=== PATIENT | male | born 2000 | race Caucasian/White ===

== ENCOUNTER 2023-07-20 19:50 | Emergency (ER) | payer OTHER, SELFPAY ==
[2023-07-20 19:52] VITALS: BP 111/81
[2023-07-20 20:22] LABS: % Basophils 0.7 % (0-2); % Immature Granulocytes 0.3 % (0-0.5); % Lymphocytes 46.9 % (20.5-51.1); % Monocytes 5.9 % (1.7-9.3); % Neutrophils 46.2 % (42.2-75.2); Absolute Lymphocytes 2.7 10^3/uL (1.2-3.4); Absolute Monocytes 0.3 10^3/uL (0.1-0.6); Absolute Neutrophils 2.7 10^3/uL (1.4-6.5); Hematocrit 40.6 % (39.0-52.0); Hemoglobin 14.4 g/dL (13.0-18.0); Mean Corp Hgb Conc. 35.5 g/dL (33.0-37.0); Mean Corpuscular Hgb 30.5 pg (27.0-31.0); Mean Platelet Volume 11.2 fL (7.4-10.4); Nucleated Red Blood Cells % 0 % (-); Platelet Count 162 10^3/uL (130-400); Red Blood Cell Count 4.72 10^6/uL (4.70-6.10); Red Cell Dist. Width 12.5 % (11.5-14.5); White Blood Cell Count 5.8 10^3/uL (4.8-10.8)
[2023-07-20 20:38] LABS: COVID-19 Antigen Negative (Negative)
[2023-07-20 20:40] LABS: ALT (SGPT) 79 U/L (0-50); AST (SGOT) 113 U/L (17-59); Albumin 4.2 g/dl (3.5-5.0); Alkaline Phosphatase 95 U/L (38-126); Blood Urea Nitrogen 16 mg/dl (9-20); Calcium 9.5 mg/dl (8.4-10.2); Carbon Dioxide 29 mmol/L (22-30); Chloride 95 mmol/L (98-107); Glucose 138 mg/dl (70-99); Potassium 3.6 mmol/L (3.5-5.1); Sodium 134 mmol/L (135-145); Total Bilirubin 1.4 mg/dl (0.2-1.3); eGFR > 60.00
--- NOTE | 2023-07-20 22:02 | ED.GENMED ---
History of Present Illness
General
Chief Complaint: Fever
Source: patient
Exam Limitations: none
Time Seen by Provider: 07/20/23 21:29
Travel History
Have you had any contact with someone who has COVID-19?: No
Do you have any symptoms of coronavirus? Fever > 100 degrees, chills, cough, shortness of breath, sore throat, loss of taste or smell, muscle aches, or headache?: Yes
Symptoms:: fever
History of Present Illness
History of Present Illness:
This is a 22 year old male that comes in with c/o fever. State that today he had a fever of 103.8. States that he has been coughing and his chest hurts. States that when he was walking around he felt dizzy. States that he has been to the PCP twice
with the last time on Monday. States that he was given Amoxicillin BID for a sinus infection. States that he has continued with fever, chills, cough, Nausea, headache and dizziness like the room is spinning. Denies any SOB, abd pain, vomiting,
diarrhea, urinary burning.
Past History
Past History
ED Past Medical History: Other (Sinus infections)
ED Past Surgical History: Other (Left eye surgery)
Social History
Tobacco: Non-smoker
Alcohol: Occasional
Personal: Single
Living: with family
Review of Systems
Review of Systems
All Other Systems: ROS reviewed and negative except as documented in HPI and ROS
Constitutional: Reports fever and chills
EENT: Reports no symptoms
Respiratory: Reports cough
Cardiac: Reports chest pain
ABD/GI: Reports nausea; Denies abdominal pain, vomiting or diarrhea
: Reports no symptoms; Denies dysuria, frequency or urgency
Musculoskeletal: Reports no symptoms
Skin: Reports no symptoms
Neurological: Reports dizzy and headache
Psychiatric: Reports no symptoms
Phy Exam
General Physical Exam
General Presentation: no apparent distress
General age: appears stated age
General Skin: warm and dry
General Habitus: normal
General Mental: alert
General Hydration: appears well hydrated
ENT Exam
ENT Exam: TM's normal, pharynx normal and neck supple
Cardiovascular Exam
Cardiovascular Exam: regular rate/rhythm, no edema, no murmur and normal peripheral pulses
Pulmonary Exam
Pulmonary Exam: lungs clear, no respiratory distress, no rales, chest non tender, no crackles, no wheezing and other (Dry cough noted)
Gastrointestinal Exam
Gastrointestinal Exam: normal bowel sounds, soft, no organomegaly, no pulsatile mass, non distended and tender (Slight tenderness suprapubic area with palpation)
Musculoskeletal Exam
Musculoskeletal Exam: full ROM, no edema and other (Negative for any nuchal rigidity)
Skin Exam
Skin Exam: normal color, warm/dry, no rash and no petechia
Psychiatric Exam
Psychiatric Exam: normal mood/affect
Course
Orders/Labs/Results
Orders:
Orders
07/20/23 19:57
IV Insert/Care/Rem.- Treatment PRN
07/20/23 19:58
CXR2 [CR Chest - 2 Views ] Urgent
Comment:
Reason For Exam: cough and fever
07/20/23 20:10
COVID-19 Antigen Urgent
Source: Nasal Swab
Complete Blood Count/With Diff Urgent
Comprehensive Metabolic Panel Urgent
Lactic Acid Q4H
Comment: ON ICE, CANCEL 2ND ORDER IF FIRST LACTIC ACID LEVEL <2
Blood Culture Q30M
[facility] Source: Blood/Venous
Specimen Description:
Comment: FROM 2 SEPARATE SITES
Influenza A+B Rapid Molecular Urgent
[facility] Source: Nasal Swab
Specimen Description:
07/20/23 22:03
0.9% Sodium Chloride 1000 ml [Nss] 1,000 ml IV BOLUS
07/20/23 22:05
Electrocardiogram (*1) Urgent
Reason for Study: Chest Pain
EKG- Treatment ONCE
07/20/23 22:07
Urinalysis Reflex To Culture Urgent
Date Specimen was Collected: 07/20/23
Time Specimen was Collected: 22:05
Urine Microscopic Reflex Cult Urgent
Blood Culture Q30M
[facility] Source: Blood/Venous
Specimen Description:
Comment: FROM 2 SEPARATE SITES
Abnormal Lab Results
07/20/23 07/20/23
20:10 22:07
MPV 11.2 H fL
(7.4-10.4)
Sodium 134 L mmol/L
(135-145)
Chloride 95 L mmol/L
(98-107)
Glucose 138 H mg/dl
(70-99)
Total Bilirubin 1.4 H mg/dl
(0.2-1.3)
AST 113 H U/L
(17-59)
ALT 79 H U/L
(0-50)
Ur Occult Blood Reflex 2+ A
(Negative)
Urine RBC 3-6 A /HPF
(0-2)
07/20/23 20:10
07/20/23 20:10
Chloride slightly low. Glucose nonfasting. AST/ALT elevation. Lactic acid normal at 1.0, COVID negative, Influenza negative. Urine negative for infection.
Vital Signs
Initial and Last Documented VS:
Initial Vital Signs
Temp Pulse Resp BP Pulse Ox
98.6 F 103 18 111/81 100
07/20/23 19:52 07/20/23 19:52 07/20/23 19:52 07/20/23 19:52 07/20/23 19:52
Last Documented Vital Signs
Temp Pulse Resp BP Pulse Ox
99.3 F 96 16 137/72 99
07/20/23 23:52 07/20/23 23:52 07/20/23 23:52 07/20/23 23:52 07/20/23 23:52
MDM/Problems Addressed
Differential Diagnosis Includes:
UTI , Viral syndrome.
MDM/Problems Addressed:
This is a 22 year old male that comes in with c/o fever. States that he has beenon Amoxicillin since Monday for a sinus infection. States that he had a fever today of 103.8, was dizzy, headache and he has a cough.
Will get labs, Chest x-ray. Give IV fluids.
Back into see patient. Explained that his blood work shows that his liver enzymes are mildly elevated. This can happen with viral illness. His Lactic acid is normal. Chest x-ray is negative acute disease and his urine is negative for infection.
Patient had blood culture also obtained and if they would come back positive he will be called and asked to come back. Patient to increase his water intake to 8-8oz glasses daily. Tylenol or Ibuprofen for headache and continue with the antibiotic he
is taking for his sinus infection. Patient to return with any concerns.
Chronic conditions affecting care:
NA
Acute Exacerbation and/or Progression of Chronic Illness:
NA
*Pulse Oximetry
Patient hypoxic: no
*EKG
Interpreted by ED Provider?: NA
Rate: EKG- N/A
*Refrigerator Repairman Interpretation
Rate: Refrigerator Repairman- N/A
*Critical Care Note
Total Time (30-74mins, 75-104mins- exclusive of procedures): Not Applicable
ED Attending Note
-
Portions of this chart may have been created with voice recognition software.� Occasional wrong word or��sound alike� substitutions may have occurred due to the inherent limitations of voice recognition software.
Discharge Plan
Departure
Patient Disposition: Home (Routine Discharge)
Date of Disposition: 07/21/23
Time of Disposition: 00:21
Patient with high blood pressure during this ER visit?: Yes
Condition: Good
Covid-19: Negative COVID-19
Discharge Problem:
Fever, Viral syndrome
Instructions: Fever, Adult (DC), Viral Syndrome (DC), BLOOD PRESSURE
Prescriptions:
No Action
No Current Medications
0
Referrals:
Eric Kim PA-C [Family Provider] - Call in 1-3 days for appt
Activity Restrictions/Additional Instructions:
As discussed, your blood work shows that your liver enzymes are mildly elevated. This can happen with a viral illness. Your chest x-ray is normal and your are negative for COVID and influenza. Your urine is negative for infection. Blood cultures
have been sent and it they would come back positive you will be called and asked to return to the emergency room. Please increase your water intake to 8-8oz glasses daily. You may use Tylenol every 6 hours and Ibuprofen every 6 hours for fever. IF
YOU HAVE ANY OTHER CONCERNS PLEASE RETURN TO THE EMERGENCY ROOM.
Interventions
Interventions:
*Risk Screen - Suicide Last Done: 07/20/23 19:52
*General Assessment Last Done: 07/20/23 19:52
*Neglect/Abuse Screening Last Done: 07/20/23 19:52
ED- Fall Risk Assessment Last Done: 07/20/23 19:52
*ED COVID-19 Vaccine History Last Done: 07/20/23 19:52
ED- Neurological Assessment Last Done: 07/20/23 23:50
ED-Skin Assessment Last Done: 07/20/23 23:50
[2023-07-20] MEDS: NSS 1000 IV (22:10)
[2023-07-20 22:20] LABS: Urine Albumin Negative (Neg - Trace); Urine Bilirubin Negative (Negative); Urine Character Clear (Clear); Urine Color Yellow; Urine Glucose Negative (Negative); Urine Ketone Negative (Negative); Urine Leukocyte Negative (Negative); Urine Nitrite Negative (Negative); Urine Occult Blood 2+ (Negative); Urine Urobilinogen 1+ (Neg - 1+)
[2023-07-20 22:23] VITALS: BMI 25.4
[2023-07-20 22:25] LABS: Urine Squamous Cell 0-2 /LPF (Few); Urine White Cell None Seen /HPF (0-5)
[2023-07-20 23:52] VITALS: BP 137/72
[2023-07-21] MEDS: TORADOL 30 MG IV (00:29)
[2023-07-21] MEDS: TYLENOL 1000 MG PO (00:29)
== END 2023-07-21 00:40 | disposition home or self-care (01) ==
LOC: EMR 19:50
PROVIDERS: Clinical Nurse Specialist Family Health; EMERGENCY PHYSICIAN Emergency Medicine; FAMILY PHYSICIAN Physician Assistant Medical
DX: R50.9 Fever, unspecified (principal); B34.9 Viral infection, unspecified
CPT/HCPCS: 99283; 71046; 80053; 81003; 81015; 83605; 85025; 87040; 87502; 87811; 93005